=== PATIENT | male | born 1995 | race African-American/Black ===

== ENCOUNTER 2021-04-12 11:55 | Emergency (ER) | payer MEDICAID, SELFPAY ==
[2021-04-12 12:20] VITALS: BP 142/91; PULSE 86; RESP 19; TEMP 37.3; O2SAT 98; BMI 45.2
--- NOTE | 2021-04-12 12:31 | HMH.EDUTC ---
[facility] [place] Clinical Impression: Otitis media Qualifiers: Otitis media type: unspecified Laterality: bilateral Qualified Code(s): H66.93 - Otitis media, unspecified, bilateral Disposition: Home, Self-Care Condition on Discharge: Good Instructions: Middle Ear Infection, Amoxicillin Additional Instructions: Take medication as prescribed Continue over the counter Motrin and/or Tylenol as directed on package for fever or pain Return if needed Straight to ER if any life threatening symptoms Prescriptions: Amoxicillin [Amoxicillin 875MG Tab] 875 mg PO Q12H #20 tab Transmission Status: Pending to [id number] Referrals: Provider,Referral, [Primary Care Provider] - As needed Time of Disposition: 12:39 Medical Decision Making - Fabrizio Inquiry Pt receiving controlled substance: No Fabrizio was queried for this patient: No Vital Signs: 04/12/21 12:20 Temperature 99.2 F Temperature Source Oral Pulse Rate [Left] 86 Respiratory Rate 19 Blood Pressure [Right Arm] 142/91 H Blood Pressure Mean [Right Arm] 108 02 Sat by Pulse Oximetry 98 [facility] [place] - General Stated complaint: bilateral ear pain Time Seen by Provider: 04/12/21 12:31 Mode of Arrival: Ambulatory Source of Information: Patient Limitations: No Limitations Description of Symptoms (Recalled from Triage Doc. by RN): bilateral ear aches. HEENT Symptoms (Recalled from RN notes): Yes (bilateral ear aches) Resp Symptoms (Recalled from RN notes): No Skin Symptoms (Recalled from RN notes): No MS Symptoms (Recalled from RN notes): No Functional Status (Recalled from RN notes): na - History of Present Illness Provider Complaint: Patient states that he has been having pain in both ears for about a week thaty has continued to get worse State that he has been taking Motrin but not helped much State that today he was still having pain so he came in to get checked - Related Data Previous Rx's Medication Instructions Recorded Amoxicillin [Amoxicillin 875MG 875 mg PO Q12H #20 tab 04/12/21 Tab] Allergies Allergy/AdvReac Type Severity Reaction Status Date / Time No Known Allergies Allergy Verified 04/12/21 12:38 - Worker's Comp Is this a Worker's Comp case?: No [facility] History - Hepatitis A Screen Drug use history?: No High risk sexual behaviors?: No History of sexually transmitted infection?: No Currently employed?: No Childcare worker?: No Do you have indoor plumbing?: Yes Do you have electricity?: Yes Attestation statement:: This patient has been screened for Hepatitis A risk factors. I have reviewed the patient's past medical history: Yes ROS Obtained: Yes All systems reviewed & no additional complaints, Yes Systems reviewed as appropriate & no additional complaints - Constitutional Constitutional: Reports system reviewed and no additional complaints, except as docu, Denies body ache, Denies chills, Denies fever(s) - Eyes Eyes: Reports system reviewed and no additional complaints, except as docu - ENT Ears, Nose, Mouth, and Throat: Reports system reviewed and no additional complaints, except as docu, Reports otalgia - Cardiovascular Cardiovascular: Reports system reviewed and no additional complaints, except as docu - Respiratory Respiratory: Reports system reviewed and no additional complaints, except as docu Physical Exam - General General appearance: alert, in no apparent distress - Expanded ENT Exam TM/Canal exam: Bilateral TM: erythema, bulging - Respiratory Respiratory exam: Present: normal lung sounds bilaterally. Absent: respiratory distress - Cardiovascular Cardiovascular exam: Present: regular rate, normal rhythm. Absent: JVD - Neurological Exam Neurological exam: Present: alert, oriented X3
[2021-04-12 12:42] VITALS: BP 142/91; PULSE 86; RESP 19; TEMP 37.3
== END 2021-04-12 12:45 | disposition home or self-care (01) ==
PROVIDERS: Emergency Provider Nurse Practitioner
DX: H66.93 Otitis media, unspecified, bilateral (principal)
CPT/HCPCS: 99202; G0463